=== PATIENT | male | born 1970 | race Caucasian/White ===

== ENCOUNTER 2021-01-24 21:18 | Inpatient (IN) | payer MEDICAID ==
[~2021-01-24] VITALS: Ht 188 cm; Wt 131.5 kg
--- NOTE | 2021-01-24 21:25 | NUR ---
PT AAOX4. BIBSELF SENT BY DR STEIN. RIGHT KNEE SURGERY. ACL REPAIR DONE 1 YEAR AGO. PLACED IN BED 17 ON MONITOR AND PULSE OX. AWAITING ER MD FOR EVAL AND ORDER. LINE ESTABLISHED RAC 20G, BLOOD WORK COLLECTED, SENT TO LAB.
--- NOTE | 2021-01-24 21:53 | NUR ---
RADIOLOGY AT BEDSIDE
--- NOTE | 2021-01-24 21:54 | NUR ---
MS 322-2
[2021-01-24 21:57] LABS: BASOPHILS # (AUTO) 0.1 K/uL (0.0-0.2); EOSINOPHILS % (AUTO) 1.2 % (0.0-6.0); HEMATOCRIT 36 % (39-51); HEMOGLOBIN 11.9 g/dL (13.5-17.5); LYMPHOCYTES # (AUTO) 1.9 K/uL (0.8-4.8); LYMPHOCYTES % (AUTO) 20.8 % (20.0-44.0); MEAN CORPUSCULAR HGB CONC 33 g/dl (31.0-36.0); MEAN CORPUSCULAR VOLUME 81 fL (80-96); MONOCYTES # (AUTO) 0.6 K/uL (0.1-1.30); MONOCYTES % (AUTO) 6.7 % (2.0-12.0); NEUTROPHILS # (AUTO) 6.4 K/uL (1.8-8.9); NEUTROPHILS % (AUTO) 70.3 % (43.0-81.0); PLATELET COUNT (AUTO) 388 K/uL (150-450); RED BLOOD CELL COUNT(AUTO) 4.41 MIL/uL (4.5-6.0); WHITE BLOOD COUNT (AUTO) 9.1 K/uL (4.3-11.0)
--- NOTE | 2021-01-24 22:10 | NUR ---
PAGED [facility]THO REGARDING PT PER LUTSKY REQUEST
[2021-01-24 22:12] LABS: CALCIUM, SERUM 8.7 mg/dL (8.5-10.1); CREATININE 1.3 mg/dL (0.6-1.3); POTASSIUM 4.4 mmol/L (3.5-5.1)
--- NOTE | 2021-01-24 23:20 | NUR ---
REPORT GIVEN TO PENG MORRISON FOR FADI. PT TRANSFERED.
[2021-01-24 23:30] VITALS: BP 133/87
[2021-01-24] MEDS ORDERED: ONDANSETRON HCL/PF 4 MG/2 ML VIAL IVP PRN (23:30)
[2021-01-24] MEDS ORDERED: ACETAMINOPHEN 325 MG TABLET PO PRN (23:30)
[2021-01-24] MEDS ORDERED: DEXTROSE 50%-WATER 50 ML DISP.SYRIN IV PRN (23:30)
--- NOTE | 2021-01-24 23:30 | NUR ---
RN ADMITTING NOTE PATIENT TRANSFERRED FROM ER VIA WHEELCHAIR. PATIENT ABLE TO AMBULATE TO BATHROOM AND BED WITH LIMPING ON THE RIGHT LOWER EXTREMITY AND MILD PAIN. PATIENT IS ABLE TO MAKE NEEDS KNOWN, A/O X 4. RAC 20 G PATENT AND FLUSHING WELL. EDUCATED PATIENT ON NPO STATUS. ORIENTED PATIENT ON THE UNIT, ROOM, PRIMARY NURSE, AND LINE CONTROLLER. PATIENT BELONGINGS INVENTORIED. HOME MEDICATIONS DOCUMENTED, HOWEVER, PATIENT DID NOT KNOW THE FREQUENCY OF THE MEDICATIONS. ADVISED PATIENT TO ASK FAMILY MEMBER TO FIND OUT FOR HIM OR TO HAVE FAMILY BRING MEDICATIONS IN THE MORNING. SKIN IS INTACT. SAFETY MEASURES IN PLACE: BED IN LOCKED AND LOWEST POSITION, CALL LIGHT WITHIN REACH, SIDE RAILS UP. WILL MONITOR PATIENT CLOSELY.
[2021-01-24] MEDS: IV NS 0.9% 1,000 ML IV PRN (23:57)
[2021-01-25] MEDS ORDERED: GLIP10TA11 PO (00:19)
[2021-01-25] MEDS ORDERED: SULF1TAB48 PO (00:19)
[2021-01-25] MEDS ORDERED: METF-442 PO (00:19)
[2021-01-25] MEDS ORDERED: ATOR80TA PO (00:19)
[2021-01-25] MEDS ORDERED: CLIN300C12 PO (00:19)
[2021-01-25] MEDS ORDERED: LOSA50TA39 PO (00:19)
[2021-01-25] MEDS ORDERED: DICL75TA5 PO (00:19)
[2021-01-25] MEDS ORDERED: GEMF600T90 PO (00:19)
[2021-01-25] MEDS ORDERED: CARV6.252 PO (00:19)
--- NOTE | 2021-01-25 02:00 | NUR ---
CONSENT OBTAINED FOR RIGHT KNEE ARTHROSCOPY AND INCISION AND DRAINAGE SCHEDULED FOR 0730 IN AM. BLOOD TRANSFUSION CONSENT WELL GENERAL ANESTHESIA CONSENTS SIGNED.
[2021-01-25] MEDS ORDERED: CLINDAMYCIN 600 MG in IV D5W 50 ML IV SCH (05:00)
[2021-01-25] MEDS ORDERED: CLINDAMYCIN 900 MG/6 ML VIAL ONE (05:08)
[2021-01-25 06:18] LABS: BASOPHILS % (AUTO) 0.5 % (0.0-2.0); HEMATOCRIT 34 % (39-51); HEMOGLOBIN 11.2 g/dL (13.5-17.5); LYMPHOCYTES # (AUTO) 1.9 K/uL (0.8-4.8); LYMPHOCYTES % (AUTO) 25.2 % (20.0-44.0); MEAN CORPUSCULAR HGB CONC 34 g/dl (31.0-36.0); MEAN CORPUSCULAR VOLUME 81 fL (80-96); MONOCYTES # (AUTO) 0.7 K/uL (0.1-1.30); MONOCYTES % (AUTO) 9.3 % (2.0-12.0); NEUTROPHILS # (AUTO) 4.7 K/uL (1.8-8.9); PLATELET COUNT (AUTO) 336 K/uL (150-450); RED BLOOD CELL COUNT(AUTO) 4.14 MIL/uL (4.5-6.0); WHITE BLOOD COUNT (AUTO) 7.4 K/uL (4.3-11.0)
[2021-01-25 06:38] LABS: CALCIUM, SERUM 8.4 mg/dL (8.5-10.1); CREATININE 1.3 mg/dL (0.6-1.3); MAGNESIUM 1.8 mg/dL (1.8-2.4); POTASSIUM 4.4 mmol/L (3.5-5.1)
--- NOTE | 2021-01-25 06:48 | NUR ---
RN CLOSING NOTE PATIENT IS AWAKE, PERFORMING HYGIENE ACTIVITIES. PATIENT IS ABLE TO MAKE NEEDS KNOWN, A/O X4. PATIENT AWAITING RIGHT KNEE ARTHROSCOPY SCHEDULED AT [address] STEIN. PATIENT'S BS 156 MG/DL. NO COVERAGE GIVEN D/T NPO STATUS. RAC 20 G INFUSING IVF WELL. RIGHT KNEE MILDLY SWOLLEN. TYLENOL GIVEN AT 2358 FOR 3/10 PAIN ON RIGHT KNEE. BREATHING EVEN AND UNLABORED. SAFETY MEASURES MAINTAINED. ALL ORDERS CARRIED OUT. ALL NEEDS MET AND ATTENDED. WILL ENDORSE TO DAY SHIFT NURSE FOR FADI.
--- NOTE | 2021-01-25 07:00 | NUR ---
PATIENT WENT DOWN TO OR. PATIENT'S VITAL SIGNS STABLE AT THIS TIME.
[2021-01-25] MEDS ORDERED: MIDAZOLAM HCL 2 MG/2ML VIAL ONE (07:14)
[2021-01-25] MEDS ORDERED: FENTANYL PF 100MCG/2ML AMPUL ONE ×2 (07:14→09:35)
[2021-01-25] MEDS: PANTOPRAZOLE 40 MG TABLET.DR PO SCH (07:30)
[2021-01-25] MEDS: INSULIN REGULAR, HUMAN 100 UNIT/ML 3 ML VIAL SQ PRN ×4 (07:36→22:23)
[2021-01-25] MEDS: BLOOD SUGAR DIAGNOSTIC 1 EACH STRIP IN SCH ×4 (07:36→22:25)
--- NOTE | 2021-01-25 07:55 | NUR ---
MS/RN OPENING NOTES PATIENT CURRENTLY NOT IN THE ROOM DUE TO SURGERY DOWNSTAIRS.
--- NOTE | 2021-01-25 10:30 | NUR ---
MS/RN NOTES PATIENT CAME BACK FROM SURGERY. S/P RIGHT KNEE ARTHROPLASTY, INCISION AND DRAINAGE. PATIENT IS ALERT AND ORIENTEDX4, ABLE TO MAKE NEEDS KNOWN. STABLE ON ROOM AIR. MINIMAL DISCOMFORTS REPORTED. V/S TAKEN FOLLOWS: 130/80, RR-18, T-98.5, 02 SAT AT 97% ROOM AIR. NO SOB NOTED. WILL CONTINUE TO MONITOR.
[2021-01-25] MEDS: NICOTINE PATCH (7MG) 7 MG PATCH.TD24 TD SCH (11:56)
[2021-01-25] MEDS: SULFAMETH/TRIMETH 800/160 MG 1 UDTAB TABLET PO SCH ×2 (11:56→20:57)
[2021-01-25] MEDS ORDERED: VANCOMYCIN 1.5 GM in IV D5W 500 ML IV SCH (12:00)
[2021-01-25] MEDS ORDERED: PIOG30TA10 PO (12:24)
[2021-01-25] MEDS: CEFTRIAXONE 1 G in IV D5W 50 ML IV SCH (14:20)
[2021-01-25 16:07] VITALS: BP 132/80
[2021-01-25] MEDS ORDERED: MORPHINE SULFATE INJ 2 MG/ML DISP.SYRIN IV PRN (19:00)
[2021-01-25] MEDS ORDERED: HYDROCODONE/APAP 5/325MG TABLET PO PRN (19:00)
--- NOTE | 2021-01-25 19:00 | NUR ---
MS RN OPENING NOTE PT AWAKE IN BED AT THIS TIME. AOX4, ABLE TO MAKE NEEDS KNOWN. NO SOB NOTED. NO C/O PAIN AT THIS TIME, NO S/O ANY ACUTE DISTRESS NOTED. RESPIRATIONS EVEN AND UNLABORED, STABLE ON RA. IV ACCESS RAC #20 PICC. SAFETY PRECAUTIONS IN PLACE AND MAINTAINED AT ALL TIMES. BED IN LOWEST LOCKED POSITION, HOB ELEVATED, SIDE RAILS UP X2, CALL LIGHT AND TABLE WITHIN REACH. FAMILY AT BEDSIDE. WILL CONTINUE TO MONITOR
--- NOTE | 2021-01-25 19:43 | NUR ---
MS/RN CLOSING NOTES PATIENT IN BED, ALERT AND ORIENTED X4, STABLE ON ROOM AIR. SAFETY PRECAUTIONS IN PLACED: BED LOCKED ON LOWEST POSITION, SIDE RAILS UPX2, CALL LIGHT WITHIN REACH. WILL ENDORSE TO THE NEXT SHIFT FOR CONTINUITY OF CARE.
[2021-01-25 20:24] VITALS: BP 126/77
--- NOTE | 2021-01-25 20:59 | NUR ---
PT C/O ACHING PAIN OF 9/10 GENERALIZED BODY, BP 126/77, HR 91, RR 18, T 98.7, O2SAT 97% ON RA PER PT REQUEST MORPHINE 2MG/1ML IV Q4H PRN ADMINISTERED PER ORDER. WILL CONTINUE TO MONITOR.
[2021-01-25] MEDS ORDERED: ENOXAPARIN SODIUM 40 MG/0.4 ML DISP.SYRIN SQ SCH (21:00)
--- NOTE | 2021-01-25 22:23 | NUR ---
BS 144. INSULIN 2 UNITS ADMINISTERED PER SLIDING SCALE. MISTAKENLY CHARTED NON ADMINISTERED.
[2021-01-26] MEDS: VANCOMYCIN 1.25 GM in IV D5W 250 ML IV SCH ×2 (00:23→12:51)
[2021-01-26] MEDS: IV NS 0.9% 1,000 ML IV PRN ×2 (00:29→12:05)
[2021-01-26] MEDS: BLOOD SUGAR DIAGNOSTIC 1 EACH STRIP IN SCH ×2 (06:00→11:48)
--- NOTE | 2021-01-26 06:00 | NUR ---
MS RN CLOSING NOTE PT IS IN BED WITH EYES CLOSED, EASY TO AROUSE. PT IS STABLE ON RA, NO SOB NOTED. NO S/S OF RESPIRATORY DISTRESS. PT IS AMBULATORY WITH BRP. IV ACCESS IS INTACT, PATENT, AND FLUSHING WELL. ALL NEEDS HAVE BEEN MET. ALL CARE, NEEDS, MEDICATIONS, AND TREATMENT ADMINISTERED ANTICIPATED PER ORDER. PT ENCOURAGED TO REPOSITION Q2H AND PRN. SAFETY, SEIZURE, AND ASPIRATION PRECAUTIONS MAINTAINED AT ALL TIMES. BED IN LOWEST LOCKED POSITION, HOB ELEVATED, SIDE RAILS UPX2. CALL LIGHT AND TABLE WITHIN REACH. WILL ENDORSE TO ONCOMING NURSE FOR FADI.
--- NOTE | 2021-01-26 06:04 | NUR ---
BS 128. NO INSULIN UNIT ADMINISTERED PER SLIDING SCALE. WILL ENDORSE TO ONCOMING NURSE FOR FADI
[2021-01-26] MEDS: INSULIN REGULAR, HUMAN 100 UNIT/ML 3 ML VIAL SQ PRN ×2 (06:09→12:13)
[2021-01-26 06:37] LABS: CALCIUM, SERUM 8.4 mg/dL (8.5-10.1); PHOSPHORUS 3.4 mg/dL (2.5-4.9); POTASSIUM 4.5 mmol/L (3.5-5.1)
[2021-01-26 08:00] VITALS: BP 125/76
--- NOTE | 2021-01-26 08:22 | NUR ---
MS RN OPENING NOTE RECEIVED PATIENT IN BED AWAKE, ALERT AND ORIENTED X4. ABLE TO MAKE NEEDS KNOWN. PT IS STABLE ON RA, NO SOB NOTED. PT IS AMBULATORY WITH BRP. IV ACCESS ON RIGHT AC #20G IS INTACT AND PATENT WITH A RUNNING NS @75ML/HR. SAFETY PRECAUTIONS IN PLACED. BED IN LOWEST LOCKED POSITION, HOB ELEVATED, SIDE RAILS UPX2. CALL LIGHT AND TABLE WITHIN REACH. WILL CONTINUE TO MONITOR PATIENT.
[2021-01-26] MEDS: PANTOPRAZOLE 40 MG TABLET.DR PO SCH (08:28)
[2021-01-26] MEDS: NICOTINE PATCH (7MG) 7 MG PATCH.TD24 TD SCH (09:00)
[2021-01-26] MEDS ORDERED: LOSARTAN POTASSIUM 50 MG TABLET PO SCH (09:00)
[2021-01-26] MEDS: METFORMIN 500 MG TABLET PO SCH ×2 (09:24→17:00)
[2021-01-26] MEDS: SULFAMETH/TRIMETH 800/160 MG 1 UDTAB TABLET PO SCH (09:25)
[2021-01-26] MEDS: CARVEDILOL 6.25 MG TABLET PO SCH ×2 (09:25→16:59)
[2021-01-26] MEDS: GEMFIBROZIL 600 MG TABLET PO SCH ×2 (09:25→17:00)
--- NOTE | 2021-01-26 11:26 | NUR ---
MS/RN NOTES- PICC LINE INSERTION PICC LINE INSERTION DONE BY PRINCE CARY ORDERED BY DR. STEIN FOR IV ATB ADMINSITRATION AT HOME.
[2021-01-26] MEDS: CEFTRIAXONE 1 G in IV D5W 50 ML IV SCH (11:48)
[2021-01-26] MEDS: glipiZIDE 10 MG TABLET PO SCH ×2 (12:19→17:00)
[2021-01-26 16:59] VITALS: BP 140/80
[2021-01-26] MEDS ORDERED: DICLOFENAC SODIUM 25 MG TABLET.DR PO SCH (17:00)
--- NOTE | 2021-01-26 17:15 | NUR ---
MS/INSPECTOR EXPERIMENTAL ASSEMBLY NOTES PATIENT IS MEDICALLY STABLE AND DR. KNOX ORDERED DISCHARGE HOME WITH HOME HEALTH FOR IV ATB AND PHYSICAL THERAPY FOR THE PATIENT. PATIENT IS ALERT AND ORIENTED, ABLE TO MAKE NEEDS KNOWN. AMBULATORY WITH A 4WW. STABLE ON ROOM AIR. MINIMAL DISCOMFORTS REPORTED ON RIGHT KNEE BUT REFUSED PAIN MEDICATIONS. DISCHARGE INSTRUCTIONS GIVEN AND PATIENT ABLE TO VERBALIZED UNDERSTANDING. ALL BELONGINGS ACCOUNTED FOR. PATIENT'S SISTER WILLIAM CAME TO PICK HIM UP. PERIPHERAL IV ACCESS TAKEN OUT. PICC LINE INTACT ON RIGHT UPPER ARM. PATIENT LEFT VIA PRIVATE CAR WITH THE SISTER.
[2021-01-27] MEDS ORDERED: ATORVASTATIN 40 MG TABLET PO SCH (09:00)
[2021-01-27] MEDS ORDERED: PIOGLITAZONE HCL 15 MG TABLET PO SCH (09:00)
== END 2021-01-26 17:15 | disposition home health service (06) | DRG 344 ==
LOC: ER 21:21 → MED 22:25
PROVIDERS: ADMIT Nurse Practitioner Family; ATTEND Internal Medicine
PROC: 3E1U48Z Irrigation of Joints using Irrigating Substance, Percutaneous Endoscopic Approach (ICD-10-PCS; principal; 2021-01-25)
PROC: 8E0YXY8 Suture Removal from Lower Extremity (ICD-10-PCS; 2021-01-25)
PROC: 02HV33Z Insertion of Infusion Device into Superior Vena Cava, Percutaneous Approach (ICD-10-PCS; 2021-01-26)
PROC: B548ZZA Ultrasonography of Superior Vena Cava, Guidance (ICD-10-PCS; 2021-01-26)
DX: M00.9 Pyogenic arthritis, unspecified (principal); E87.1 Hypo-osmolality and hyponatremia; M71.161 Other infective bursitis, right knee; D64.9 Anemia, unspecified; E11.9 Type 2 diabetes mellitus without complications; I10 Essential (primary) hypertension; Z82.49 Family history of ischemic heart disease and other diseases of the circulatory system; Z83.3 Family history of diabetes mellitus
CPT/HCPCS: 36415; 71045-TC; 73564-TC; 80048-TC; 80061-TC; 82962-TC; 83540-TC; 83735-TC; 84100-TC; 85025-TC; 85730-TC; 87070-TC; 87075-TC; 87081-TC; 97116-TC; 97530-TC; A4217; A6253; G0378; J0690; J0696; J1650; J1815; J1885; J2250; J2270; J2405; J2704; J2765; J3010; J3370; J3490; J7030; J7060

== ENCOUNTER 2021-02-01 16:52 | Emergency (ER) | payer MEDICAID ==
[~2021-02-01] VITALS: Ht 188 cm; Wt 131.1 kg
[~2021-02-01 16:52] MED LIST: ATOR80TA PO; CARV6.252 PO; CLIN300C12 PO; DICL75TA5 PO; GEMF600T90 PO; GLIP10TA11 PO; LOSA50TA39 PO; METF-442 PO; PIOG30TA10 PO; SULF1TAB48 PO
--- NOTE | 2021-02-01 17:00 | NUR ---
PT BIB SELF SENT BY PMD FOR K+ LEVEL OF 5.4. PT IS AAOX4, NOT IN RESPIRATORY DISTRESS, HOOKED TO GROUNDS WORKER, KEPT RESTED AND COMFORTABLE. WILL CONTINUE TO MONITOR.
--- NOTE | 2021-02-01 17:36 | NUR ---
PT SEEN AND EXAMINED BY CATRACHITA MURRAY.
[2021-02-01 17:52] LABS: BASOPHILS % (AUTO) 0.6 % (0.0-2.0); EOSINOPHILS % (AUTO) 2.3 % (0.0-6.0); HEMATOCRIT 38 % (39-51); HEMOGLOBIN 12.4 g/dL (13.5-17.5); LYMPHOCYTES # (AUTO) 1.9 K/uL (0.8-4.8); LYMPHOCYTES % (AUTO) 25.8 % (20.0-44.0); MEAN CORPUSCULAR HGB CONC 33 g/dl (31.0-36.0); MEAN CORPUSCULAR VOLUME 81 fL (80-96); MONOCYTES # (AUTO) 0.5 K/uL (0.1-1.30); MONOCYTES % (AUTO) 6.2 % (2.0-12.0); NEUTROPHILS # (AUTO) 4.8 K/uL (1.8-8.9); NEUTROPHILS % (AUTO) 65.1 % (43.0-81.0); PLATELET COUNT (AUTO) 345 K/uL (150-450); RED BLOOD CELL COUNT(AUTO) 4.65 MIL/uL (4.5-6.0); WHITE BLOOD COUNT (AUTO) 7.4 K/uL (4.3-11.0)
--- NOTE | 2021-02-01 17:53 | NUR ---
ER PHLEB AT BEDSIDE FOR BLOOD DRAW.
[2021-02-01 18:08] LABS: ALBUMIN 3.4 g/dL (3.4-5.0); BILIRUBIN,TOTAL 0.4 mg/dL (0.2-1.0); CALCIUM, SERUM 8.8 mg/dL (8.5-10.1); POTASSIUM 4.9 mmol/L (3.5-5.1); TOTAL PROTEIN, SERUM 7.7 g/dL (6.4-8.2)
[2021-02-01 19:03] VITALS: BP 138/78
--- NOTE | 2021-02-01 19:03 | NUR ---
Patient discharged to home in stable condition. Written and verbal after care instructions given. Patient verbalizes understanding of instruction.
== END 2021-02-01 19:04 | disposition home or self-care (01) ==
LOC: ER 17:32
DX: R79.9 Abnormal finding of blood chemistry, unspecified (principal); I10 Essential (primary) hypertension; E11.9 Type 2 diabetes mellitus without complications; Z98.890 Other specified postprocedural states; Z79.899 Other long term (current) drug therapy; Z79.84 Long term (current) use of oral hypoglycemic drugs
CPT/HCPCS: 36415; 80053-TC; 85025-TC